=== PATIENT | female | born 1975 | race Caucasian/White ===

== ENCOUNTER 2021-04-16 08:30 | Day surgery (SDC) | payer MEDICAID ==
[~2021-04-16] VITALS: Ht 160 cm; Wt 100.8 kg
[2021-04-16 08:51] VITALS: BP 128/79
[2021-04-16] MEDS ORDERED: ACET-75 PO (09:16)
[2021-04-16] MEDS ORDERED: GABA-530 PO (09:16)
[2021-04-16] MEDS ORDERED: ALBU90AE (09:16)
[2021-04-16] MEDS ORDERED: POTA8TAB58 (09:16)
[2021-04-16] MEDS ORDERED: SPIR50TA5 PO (09:16)
[2021-04-16] MEDS ORDERED: ACYC-126 PO (09:16)
[2021-04-16] MEDS ORDERED: CITA40TA17 PO (09:16)
[2021-04-16] MEDS ORDERED: LEVO100T9 PO (09:16)
[2021-04-16] MEDS ORDERED: BACL20TA PO (09:16)
[2021-04-16] MEDS ORDERED: LACT10SO3 PO (09:16)
[2021-04-16] MEDS ORDERED: OMEP-50 PO (09:16)
[2021-04-16] MEDS ORDERED: FURO20TA4 PO (09:16)
[2021-04-16] MEDS ORDERED: DOCU100C40 PO (09:20)
[2021-04-16] MEDS ORDERED: OMEG1CAP2 (09:20)
[2021-04-16] MEDS ORDERED: CHOL500044 (09:20)
[2021-04-16] MEDS: albumin 25% 100mL bottle x 1 IV PRN ×2 (10:44→10:50)
[2021-04-16 10:45] VITALS: BP 144/80
[2021-04-16 11:00] VITALS: BP 126/91
== END 2021-04-16 12:30 | disposition home or self-care (01) ==
LOC: SSTAY O 08:30
PROVIDERS: ATTEND Preventive Medicine Aerospace Medicine
DX: R18.8 Other ascites (principal); R14.0 Abdominal distension (gaseous); K74.60 Unspecified cirrhosis of liver; K72.90 Hepatic failure, unspecified without coma; F31.9 Bipolar disorder, unspecified; E03.9 Hypothyroidism, unspecified; F10.20 Alcohol dependence, uncomplicated; Z86.19 Personal history of other infectious and parasitic diseases; Z98.890 Other specified postprocedural states; Z79.899 Other long term (current) drug therapy
CPT/HCPCS: 49083; P9047

== ENCOUNTER 2021-05-03 08:03 | Day surgery (SDC) | payer MEDICAID ==
[~2021-05-03] VITALS: Ht 160 cm; Wt 84.2 kg
[2021-05-03] VITALS (10 sets, daily range): BP systolic 120–141; BP diastolic 76–108
[~2021-05-03 08:03] MED LIST: ACET-75 PO; ACYC-126 PO; ALBU90AE; BACL20TA PO; CHOL500044; CITA40TA17 PO; DOCU100C40 PO; FURO20TA4 PO; GABA-530 PO; LACT10SO3 PO; LEVO100T9 PO; OMEG1CAP2; OMEP20CA16 PO; POTA8TAB58; SPIR50TA5 PO
[2021-05-03] MEDS ORDERED: LIDOcaine 1% 30ml preserv. free vial SQ STA (08:37)
[2021-05-03] MEDS ORDERED: albumin 25% 100mL bottle x 1 IV PRN (08:40)
[2021-05-03] MEDS ORDERED: orphenadrine citrate 60mg/2ml inj. IV ONE (10:26)
== END 2021-05-03 12:15 | disposition home or self-care (01) ==
LOC: SSTAY O 08:03
PROVIDERS: ATTEND Radiology Vascular & Interventional Radiology
DX: K70.31 Alcoholic cirrhosis of liver with ascites (principal); B18.2 Chronic viral hepatitis C; E03.9 Hypothyroidism, unspecified; K72.90 Hepatic failure, unspecified without coma; F31.9 Bipolar disorder, unspecified; Z98.890 Other specified postprocedural states; Z79.899 Other long term (current) drug therapy
CPT/HCPCS: 49083; J2360; J3490; P9047

== ENCOUNTER 2021-05-03 12:18 | Emergency (ER) | payer MEDICAID ==
[~2021-05-03] VITALS: Ht 160 cm; Wt 84.1 kg
[2021-05-03 13:16] LABS: BASOPHILS # (AUTO) 0.1 X10'3 (0-0.2); BASOPHILS % (AUTO) 1.2 % (0-1); EOSINOPHILS # (AUTO) 0.1 X10'3 (0-0.9); EOSINOPHILS % (AUTO) 3.1 % (0-6); HEMATOCRIT 29.2 % (35.0-45.0); HEMOGLOBIN 9.4 g/dl (12.0-16.0); MEAN CORPUSCULAR HEMOGLOBIN 29.3 PG (27.0-31.0); MEAN CORPUSCULAR HGB CONC 32.3 g/dL (33.0-36.5); MEAN CORPUSCULAR VOLUME 90.9 FL (78-98); MEAN PLATELET VOLUME 6.9 FL (7.4-10.4); MONOCYTES # (AUTO) 0.5 X10'3 (0-0.9); MONOCYTES % (AUTO) 10.3 % (2-12); NEUTROPHILS % (AUTO) 63.4 % (42-75); PLATELET COUNT 206 X10'3 (140-440); RED BLOOD COUNT 3.21 X10'6 (4.20-5.60); RED CELL DISTRIBUTION WIDTH 16.6 % (11.5-14.5); WHITE BLOOD COUNT 4.8 X10'3 (4.5-11.0)
[2021-05-03 13:31] LABS: ALANINE AMINOTRANSFERASE 13 U/L (12-78); ALBUMIN/GLOBULIN RATIO 0.4 (1.1-1.5); ALKALINE PHOSPHATASE 107 IU/L (46-116); AMYLASE 33 U/L (25-115); ANION GAP 5 (8-16); ASPARTATE AMINO TRANSFERASE 19 U/L (10-37); BILIRUBIN,TOTAL 0.4 MG/DL (0.1-1.0); BLOOD UREA NITROGEN 9 MG/DL (7-18); BUN/CREATININE RATIO 12.3 (6.6-38.0); CALCIUM 7.8 MG/DL (8.5-10.1); CHLORIDE 106 MMOL/L (99-107); CREATININE 0.73 MG/DL (0.40-0.90); GLUCOSE 126 MG/DL (70-104); LIPASE 106 U/L (73-393); POTASSIUM 3.6 MMOL/L (3.5-5.1); SODIUM 141 MMOL/L (135-145); TOTAL CARBON DIOXIDE 29.6 MMOL/L (24-32); TOTAL PROTEIN 7.5 G/DL (6.4-8.2); eGFR 85 ML/MIN
[2021-05-03] MEDS ORDERED: acetaminophen 325mg tablet PO ONE (14:30)
[2021-05-03] MEDS ORDERED: iohexol 300mg/ml 100ml inj. ONE (14:56)
[2021-05-03 17:13] LABS: CLARITY,URINE CLOUDY (Clear); COLOR,URINE YELLOW (Yellow); GLUCOSE, URINE NEGATIVE (Neg); KETONES,URINE NEGATIVE (Neg); LEUKOCYTE ESTERASE ,URINE NEGATIVE (Neg); NITRITES, URINE NEGATIVE (Neg); OCCULT BLOOD,URINE SMALL (Neg); PROTEIN,URINE NEGATIVE (Neg)
[2021-05-03 17:15] LABS: UA COLLECTION TYPE VOIDED; URINE HCG NEGATIVE (NEG)
[2021-05-03 17:26] VITALS: BP 147/84
[2021-05-03 17:28] LABS: AMORPHOUS PHOSPHATES 3+; SQUAMOUS EPITHELIAL CELL,UR FEW /LPF (FEW)
[2021-05-03 17:29] LABS: BACTERIA,URINE FEW /HPF (Neg); MUCUS STRANDS MODERATE /LPF (Neg); RBC,URINE 0-2 /HPF (0-2); WBC,URINE 0-4 /HPF (0-4)
== END 2021-05-03 18:23 | disposition home or self-care (01) ==
LOC: ER 12:19
DX: R10.30 Lower abdominal pain, unspecified (principal); R60.0 Localized edema; J44.9 Chronic obstructive pulmonary disease, unspecified; Z72.89 Other problems related to lifestyle; Z79.899 Other long term (current) drug therapy
CPT/HCPCS: 36415; 71045; 74177; 80053; 81001; 81025; 82140; 82150; 83690; 84145; 85025; 99285; Q9967

== ENCOUNTER 2021-06-22 08:39 | Day surgery (SDC) | payer MEDICAID ==
[~2021-06-22] VITALS: Ht 160 cm; Wt 79.3 kg
[~2021-06-22 08:39] MED LIST changes: -DOCU100C40 PO; +LIDOcaine 1%/PF 5ML 10 MG/ML VIAL IJ ONE; -OMEG1CAP2
[2021-06-22] MEDS ORDERED: albumin 25% 100mL bottle x 1 IV PRN (09:00)
[2021-06-22 09:30] VITALS: BP 125/79
[2021-06-22 09:42] VITALS: BP 120/76
[2021-06-22 09:57] VITALS: BP 121/74
[2021-06-22 10:05] VITALS: BP_SYST 120; BP_DIAS 7; BP_DIAS 77
[2021-06-22 10:12] VITALS: BP 126/76
== END 2021-06-22 10:30 | disposition home or self-care (01) ==
LOC: SSTAY O 08:39
PROVIDERS: ATTEND Radiology Vascular & Interventional Radiology
DX: R18.8 Other ascites (principal); R14.0 Abdominal distension (gaseous); K72.10 Chronic hepatic failure without coma; E03.9 Hypothyroidism, unspecified; F31.9 Bipolar disorder, unspecified; F10.20 Alcohol dependence, uncomplicated; Z98.890 Other specified postprocedural states; Z86.19 Personal history of other infectious and parasitic diseases; Z79.899 Other long term (current) drug therapy
CPT/HCPCS: 49083; J3490

== ENCOUNTER 2021-08-13 08:45 | Day surgery (SDC) | payer MEDICAID ==
[2021-08-13] VITALS (11 sets, daily range): BP systolic 117–139; BP diastolic 67–79
[~2021-08-13] VITALS: Ht 160 cm; Wt 86.9 kg
[~2021-08-13 08:45] MED LIST changes: -ACET-75 PO; -ACYC-126 PO; +DOCU-340 PO; -LIDOcaine 1%/PF 5ML 10 MG/ML VIAL IJ ONE; +NAPR-1170 PO; +RISP1TAB98 PO
[2021-08-13] MEDS ORDERED: LIDOcaine 1%/PF 5ML 10 MG/ML VIAL IM ONE (09:20)
[2021-08-13] MEDS ORDERED: SENN-263 PO (09:24)
[2021-08-13] MEDS ORDERED: OXYC-658 PO (09:24)
[2021-08-13] MEDS ORDERED: albumin (human) 25% 100ml IV 100 ML IV ONE ×2 (09:35→10:55)
== END 2021-08-13 13:00 | disposition home or self-care (01) ==
LOC: SSTAY O 08:45
PROVIDERS: ATTEND Radiology Vascular & Interventional Radiology
DX: R18.8 Other ascites (principal); K74.60 Unspecified cirrhosis of liver; E03.9 Hypothyroidism, unspecified; F10.20 Alcohol dependence, uncomplicated; F31.9 Bipolar disorder, unspecified; Z86.19 Personal history of other infectious and parasitic diseases; Z98.890 Other specified postprocedural states; Z79.899 Other long term (current) drug therapy
CPT/HCPCS: 49083; J3490; P9047

== ENCOUNTER 2021-12-13 07:53 | Day surgery (SDC) | payer MEDICAID ==
[~2021-12-13] VITALS: Ht 160 cm; Wt 76.4 kg
[~2021-12-13 07:53] MED LIST changes: +OXYC-658 PO; +SENN-263 PO
[2021-12-13 08:15] VITALS: BP 136/88
[2021-12-13] MEDS ORDERED: LACT10SO3 PO (08:22)
[2021-12-13] MEDS ORDERED: PANT20TA18 PO (08:22)
[2021-12-13] MEDS ORDERED: MIRT7.5T11 PO (08:22)
[2021-12-13] MEDS ORDERED: CEPH-585 PO (08:22)
[2021-12-13] MEDS ORDERED: GABA-530 PO (08:22)
[2021-12-13] MEDS ORDERED: OXYC-658 PO (08:22)
[2021-12-13] MEDS ORDERED: LINA72CA PO (08:22)
[2021-12-13] MEDS ORDERED: POTA8TAB69 PO (08:22)
[2021-12-13] MEDS ORDERED: LIDOcaine 1% 30ml preserv. free vial SQ STA (08:23)
[2021-12-13] MEDS ORDERED: albumin 25% 100mL bottle x 1 IV PRN (08:40)
--- NOTE | 2021-12-13 09:00 | NUR ---
Limited US only. No procedure indicated due to not enough fluid.
== END 2021-12-13 09:30 | disposition home or self-care (01) ==
LOC: SSTAY O 07:53
PROVIDERS: ATTEND Radiology Vascular & Interventional Radiology
DX: R18.8 Other ascites (principal); K74.60 Unspecified cirrhosis of liver; E03.9 Hypothyroidism, unspecified; F31.9 Bipolar disorder, unspecified; Z98.890 Other specified postprocedural states; Z79.899 Other long term (current) drug therapy; Z86.19 Personal history of other infectious and parasitic diseases
CPT/HCPCS: 76705; A6258; A6402